=== PATIENT | male | born 1955 | race Caucasian/White ===

== ENCOUNTER 2016-11-28 11:37 | Emergency (ER) | payer OTHER ==
--- NOTE | 2016-11-28 12:00 | EKG ---
[address] [address] Test Date: 2016-11-28 Test Time: 11:59:08 Pat Name: ZHANE FORTE Department: Room: Gender: M Medical Records Clerk: : [id number] Requested By: RENE JAMES Order Number: [id number] Reading MD: Alberto Schaefer Measurements Intervals [place] Rate: 76 P: [place]: QRS: 10 QRSD: 88 T: -3 QT: 356 QTc: 405 Interpretive Statements ATRIAL FIBRILLATION WITH CONTROLLED VENTRICULAR RESPONSE NON-SPECIFIC ST/T CHANGES Electronically Signed On 12-05-2016 14:11:06 CDT by Alberto Schaefer
--- NOTE | 2016-11-28 12:04 | RAD ---
Indication slurred speech. Change in mental status. Code stroke. Noncontrast images through the head were obtained. No prior imaging is available. Pulmonary critical results were communicated to Dr. Hoffman, in the emergency room, at the time of dictation. The calvarium appears unremarkable and the visualized paranasal sinuses appear normal. No subdural or epidural hematoma is seen. No mass or midline shift is seen. An acute finding is not apparent. There is no evidence of hemorrhage. IMPRESSION: No acute finding seen in the head PQRS Compliance Statement: One or more of the following individualized dose reduction techniques were utilized for this examination: 1. Automated exposure control 2. Adjustment of the mA and/or kV according to patient size 3. Use of iterative reconstruction technique
[2016-11-28 12:05] LABS: BASO # 0.1 x10^3/uL (0.0-0.2); BASO % 1 % (0-3); EOS # 0.2 x10^3/uL (0.0-0.7); EOS % 3 % (0-3); HEMATOCRIT 49.7 % (39.0-53.0); HEMOGLOBIN 17.1 g/dL (13.0-17.5); LYMPH # 2.1 x10^3/uL (1.0-4.8); LYMPH % 25 % (24-48); MEAN CORPUSCULAR HEMOGLOBIN 33 pg (25-35); MEAN CORPUSCULAR HGB CONC 34 g/dL (31-37); MEAN CORPUSCULAR VOLUME 95 fL (79-100); MONO % 12 % (0-9); NEUT % 60 % (31-73); PLATELET COUNT 250 x10^3/uL (140-400); RED BLOOD COUNT 5.25 x10^6/uL (4.30-5.70); RED CELL DISTRIBUTION WIDTH 13.6 % (11.5-14.5); WHITE BLOOD COUNT 8.3 x10^3/uL (4.0-11.0)
[2016-11-28 12:19] LABS: ALBUMIN 4.1 g/dL (3.4-5.0); ALBUMIN/GLOBULIN RATIO 1.1 (1.0-1.7); CALCIUM 9.4 mg/dL (8.5-10.1); CREATININE 1.1 mg/dL (0.7-1.3); GFR 68.3; POTASSIUM 3.4 mmol/L (3.5-5.1); TOTAL BILIRUBIN 0.8 mg/dL (0.2-1.0); TOTAL PROTEIN 7.9 g/dL (6.4-8.2)
[2016-11-28] MEDS ORDERED: HEPARIN for IV BOLUS 10,000 UNIT/10 ML VIAL. IV PRN ×2 (12:30)
[2016-11-28] MEDS: ASPIRIN ENTERIC COATED 81 MG TABLET.DR. PO ONE (12:36)
[2016-11-28] MEDS: HEPARIN 25,000UTS/500ML PREMIX 500 ML IV PRN (12:37)
--- NOTE | 2016-11-28 12:39 | ED.ADGEN ---
Past History Past Medical History: High Cholesterol, Hypertension Past Surgical History: No Surgical History Alcohol Use: None Drug Use: None Adult General Chief Complaint Chief Complaint Abnormal speech HPI HPI Patient is a 61-year-old male presents with difficulty speaking acute onset approximately 20 minutes prior to arrival while at work. Patient was speaking on the phone when he had difficulty finding and expressing his words. Symptoms lasted less than 2 minutes and full resolved prior to ED arrival. He denies headache, neck pain, dizziness, tinnitus, vertigo, periods swallow, extremity weakness or loss of sensation or loss of balance. Patient denies chest pain shortness breath or palpitations. No prior episodes of speech difficulties. Patient takes daily aspirin is bilateral blood pressures stat medications. No history of arrhythmias. No other acute symptoms or complaints. Patient is a nonsmoker. He lives in [place] from [facility] and works in [employer]. He is accompanied at bedside by family members. Review of Systems Review of Systems Review of symptoms as per history of present illness. All other review symptoms are negative. Current Medications Current Medications Current Medications Medications (Trade) Dose Ordered Sig/Cordelia Start Time Stop Time Status Last Admin Dose Admin Aspirin 162 mg 162 mg 1X ONCE 11/28/16 12:30 11/28/16 12:31 UNV Heparin Sodium (Porcine) 1,000 unit PRN Q6HRS PRN 11/28/16 12:30 UNV Heparin Sodium/ Dextrose 500 ml @ 0 mls/hr CONT PRN 11/28/16 12:30 UNV Allergies Allergies Allergies Coded Allergies Type Severity Reaction Last Updated Verified No Known Drug Allergies 11/28/16 No Physical Exam Physical Exam Constitutional: Well developed, well nourished, no acute distress, non-toxic appearance. HENT: Normocephalic, atraumatic, bilateral external ears normal, oropharynx moist, no oral exudates, nose normal. Eyes: PERRLA, EOMI, conjunctiva normal, no discharge. Neck: Normal range of motion, no tenderness. Cardiovascular: Regular rhythm, normal rate. Lungs & Thorax: Bilateral breath sounds clear to auscultation. Abdomen: Bowel sounds normal, soft, no tenderness, no masses, no pulsatile masses. Skin: Warm, dry. Back: No tenderness. Extremities: No tenderness. Neurologic: Alert and oriented X 3, cranial nerves II through XII grossly intact , normal motor function, normal sensory function. Reflexes 2+ and symmetric throughout. NIH stroke 0 on my exam. Psychologic: Affect normal, judgement normal, mood normal. Current Patient Data Vital Signs Vital Signs Date Time Temp Pulse Resp B/P Pulse Ox O2 Delivery O2 Flow Rate FiO2 11/28/16 11:40 98.1 94 18 98 Room Air Lab Results Laboratory Tests Test 11/28/16 11:54 White Blood Count 8.3x10^3/uL (4.0-11.0) Red Blood Count 5.25x10^6/uL (4.30-5.70) Hemoglobin 17.1g/dL (13.0-17.5) Hematocrit 49.7% (39.0-53.0) Mean Corpuscular Volume 95fL (79-100) Mean Corpuscular Hemoglobin 33pg (25-35) Mean Corpuscular Hemoglobin Concent 34g/dL (31-37) Red Cell Distribution Width 13.6% (11.5-14.5) Platelet Count 250x10^3/uL (140-400) Neutrophils (%) (Auto) 60% (31-73) Lymphocytes (%) (Auto) 25% (24-48) Monocytes (%) (Auto) 12% (0-9) H Eosinophils (%) (Auto) 3% (0-3) Basophils (%) (Auto) 1% (0-3) Neutrophils # (Auto) 5.0x10^3uL (1.8-7.7) Lymphocytes # (Auto) 2.1x10^3/uL (1.0-4.8) Monocytes # (Auto) 1.0x10^3/uL (0.0-1.1) Eosinophils # (Auto) 0.2x10^3/uL (0.0-0.7) Basophils # (Auto) 0.1x10^3/uL (0.0-0.2) Sodium Level 137mmol/L (136-145) Potassium Level 3.4mmol/L (3.5-5.1) L Chloride Level 100mmol/L (98-107) Carbon Dioxide Level 28mmol/L (21-32) Anion Gap 9 (6-14) Blood Urea Nitrogen 20mg/dL (8-26) Creatinine 1.1mg/dL (0.7-1.3) Estimated GFR (Cockcroft-Gault) 68.3 BUN/Creatinine Ratio 18 (6-20) Glucose Level 133mg/dL (70-99) H Calcium Level 9.4mg/dL (8.5-10.1) Total Bilirubin 0.8mg/dL (0.2-1.0) Aspartate Amino Transferase (AST) 30U/L (15-37) Alanine Aminotransferase (ALT) 49U/L (16-63) Alkaline Phosphatase 76U/L (46-116) Creatine Kinase 154U/L (39-308) Total Protein 7.9g/dL (6.4-8.2) Albumin 4.1g/dL (3.4-5.0) Albumin/Globulin Ratio 1.1 (1.0-1.7) EKG EKG [EKG: A. fib, rate controlled.] Radiology/Procedures Radiology/Procedures [CT head: No acute findings of the head per radiology report.] Impressions: Expressive aphasia. Course & Med Decision Making Course & Med Decision Making Pertinent Labs and Imaging studies reviewed. (See chart for details) [Patient initially with NIH stroke score of 2 on nursing exam, and I stroke score 0 on my evaluation. Aspirin given. Patient new onset A. fib rate controlled. Patient started on heparin drip. Patient's preference is to be admitted to the hospital closer to where patient and patient's family members live.] Final Impression Final Impression [1. CVA 2. Expressive aphasia 3. new-onset a-fib Problems: Dragon Disclaimer Dragon Disclaimer This electronic medical record was generated, in whole or in part, using a voice recognition dictation system. RENE JAMES DO Nov 28, 2016 12:39
[2016-11-28] MEDS ORDERED: ATOR40TA59 PO (12:40)
[2016-11-28] MEDS ORDERED: HYDR50TA6 PO (12:40)
[2016-11-28] MEDS ORDERED: AMLO1CAP15 PO (12:41)
[2016-11-28 13:08] VITALS: BP 106/72
== END 2016-11-28 13:44 ==
LOC: EDBD 11:37 → ER 12:56
DX: I63.9 Cerebral infarction, unspecified (principal); R47.01 Aphasia; I48.91 Unspecified atrial fibrillation; I10 Essential (primary) hypertension; E78.00 Pure hypercholesterolemia, unspecified; Z79.82 Long term (current) use of aspirin
CPT/HCPCS: 36415; 70450; 80053; 82550; 82947; 85027; 85610; 85730; 93005; 96365; 99285-25